=== PATIENT | female | born 1980 | race African-American/Black ===

== ENCOUNTER 2019-01-26 08:58 | Day surgery (SDC) | payer OTHER ==
[2019-01-26 15:26] VITALS: BP 120/78; TEMP 98.6
== END 2019-01-26 15:27 | disposition home or self-care (01) ==
LOC: ONC/OP 08:58
PROVIDERS: ATTEND Specialist
PROC: 30233N1 Transfusion of Nonautologous Red Blood Cells into Peripheral Vein, Percutaneous Approach (ICD-10-PCS; principal; 2019-01-26)
DX: D64.9 Anemia, unspecified (principal); E61.1 Iron deficiency
CPT/HCPCS: 36430; 86850; 86900; 86901; P9016